=== PATIENT | male | born 1965 | race Caucasian/White ===

== ENCOUNTER 2018-10-23 10:30 | Outpatient (CLI) | payer OTHER ==
--- NOTE | 2018-10-23 14:00 | MRI ---
MRI LEFT SHOULDER: DATE: 10/23/2018. PROVIDED CLINICAL HISTORY: Left shoulder pain. FINDINGS: There is an abnormal appearance to the supraspinatus tendon. There is high-grade partial thickness u ndersurface tearing with retraction of the undersurface fibers to about the level of the acromion. I n addition, there are multifocal areas of partial thickness bursal surface tearing that communicate w ith the undersurface defect. There is resultant conspicuous subacromial subdeltoid bursal fluid. Th e components of the rotator cuff appear otherwise intact. The long head biceps tendon appears intact and normally located. The glenoid labrum and glenohumeral articular cartilage are suboptimally evaluated in the absence of joint distention but appear grossly normal. The amount of fluid within the glenohumeral joint appear s physiologic. There is subcortical cyst-like change present within the greater tuberosity. There is acromioclavicu lar joint osteoarthrosis and lateral downsloping of the acromion, the latter of which narrows the sub acromial space. Rotator cuff muscular volume appears preserved. IMPRESSION: 1. Retracted high-grade partial thickness undersurface tear involving the supraspinatus tendon with small foci of bursal surface tearing that communicate with this defect. There is no retraction of bu rsal surface fibers. There is resultant conspicuous subacromial subdeltoid bursal fluid. 2. Lateral downsloping of the acromion, which narrows the subacromial space. POS: OFF
== END 2018-10-23 10:31 | disposition home or self-care (01) ==
LOC: BICMRI 10:30
PROVIDERS: ATTEND Family Medicine
DX: M25.512 Pain in left shoulder (principal); M75.102 Unspecified rotator cuff tear or rupture of left shoulder, not specified as traumatic

== ENCOUNTER 2021-04-24 23:06 | Observation (INO) | payer OTHER ==
[2021-04-25] MEDS ORDERED: Aspirin Chewable 81 MG TAB ONE (01:11)
[2021-04-25] MEDS ORDERED: Aspirin 325 MG TAB ONE (01:33)
[2021-04-25] MEDS ORDERED: Ondansetron ODT 4 MG TAB PO PRN (02:11)
[2021-04-25] MEDS ORDERED: Acetaminophen 325 MG TAB PO PRN (02:11)
[2021-04-25] MEDS ORDERED: hydrALAZINE 20 MG/ML VIAL SLOW IVP PRN (02:11)
[2021-04-25] MEDS ORDERED: Ondansetron PF 4 MG/2 ML Vial IVP PRN (02:11)
[2021-04-25 03:43] VITALS: BMI 18.8
[2021-04-25 04:33] LABS: #Basophils 0.1 thou/uL (0.0-0.2); #Eosinphils 0.2 thou/uL (0.0-0.7); #Lymphocytes 3.4 thou/uL (1.20-3.40); #Monocytes 0.6 thou/uL (0.11-0.59); #Neutrophils 3.8 thou/uL (1.40-6.50); %Eosinophils 2.1 % (0.0-10.0); %Monocytes 7.6 % (0.0-10.0); %Neutrophils 47.4 % (42.0-75.0); Hemoglobin 12.7 g/dL (14.0-18.0); Mean Corpuscular Hemoglobin 30.8 pg (27.0-31.0); Mean Corpuscular Volume 90.5 fL (78.0-98.0); Mean Platelet Volume 9.5 fL (7.4-10.4); Platelet Count 141 thou/uL (130-400); RBC Distribution Width 12.9 % (11.5-14.5); Red Blood Cell (RBC) Count 4.14 mill/uL (4.70-6.10); White Blood Cell (WBC) Count 8.1 thou/uL (4.8-10.8)
[2021-04-25 04:57] LABS: Anion Gap 11 mmol/L (10-20); BUN (Urea Nitrogen) 22 mg/dL (8.4-25.7); Calc. Creatinine Clearance 51 mL/min (70-130); Calcium 9.1 mg/dL (7.8-10.44); Carbon Dioxide 26 mmol/L (22-29); Cardiac Risk 4.4 (Less than 4.5); Chloride 106 mmol/L (98-107); Cholesterol 119 mg/dl (< 200 Desired); Glucose 78 mg/dL (70-105); HDL Cholesterol 27 mg/dL (>60 Neg Risk); LDL Cholesterol, Calculated 77 mg/dL; Potassium 4.4 mmol/L (3.5-5.1); Sodium 139 mmol/L (136-145); Triglycerides 74 mg/dL (Less than 150)
[2021-04-25] MEDS: Enoxaparin Sodium 40 MG/0.4 ML SYRINGE SC SCH (11:00)
[2021-04-25] MEDS: Aspirin 81 mg Enteric Coated Tablet PO SCH (11:00)
[2021-04-25 19:40] LABS: #Basophils 0.1 thou/uL (0.0-0.2); #Eosinphils 0.1 thou/uL (0.0-0.7); #Lymphocytes 2.5 thou/uL (1.20-3.40); #Monocytes 0.5 thou/uL (0.11-0.59); #Neutrophils 4.3 thou/uL (1.40-6.50); %Basophils 0.7 % (0.0-1.0); %Eosinophils 1.8 % (0.0-10.0); %Lymphocytes 33.2 % (21.0-51.0); %Monocytes 6.3 % (0.0-10.0); %Neutrophils 57.9 % (42.0-75.0); Hemoglobin 12.5 g/dL (14.0-18.0); Mean Corpuscular HGB CONC 33.6 g/dL (32.0-36.0); Mean Corpuscular Hemoglobin 30.4 pg (27.0-31.0); Mean Corpuscular Volume 90.6 fL (78.0-98.0); Mean Platelet Volume 9.4 fL (7.4-10.4); Platelet Count 147 thou/uL (130-400); RBC Distribution Width 12.9 % (11.5-14.5); Red Blood Cell (RBC) Count 4.12 mill/uL (4.70-6.10); White Blood Cell (WBC) Count 7.4 thou/uL (4.8-10.8)
[2021-04-25 20:00] LABS: Anion Gap 13 mmol/L (10-20); BUN (Urea Nitrogen) 22 mg/dL (8.4-25.7); Calc. Creatinine Clearance 51 mL/min (70-130); Calcium 8.9 mg/dL (7.8-10.44); Carbon Dioxide 26 mmol/L (22-29); Chloride 105 mmol/L (98-107); Glucose 112 mg/dL (70-105); Potassium 4.2 mmol/L (3.5-5.1); Sodium 140 mmol/L (136-145)
[2021-04-25] MEDS ORDERED: Simvastatin 5 MG TAB PO SCH (21:00)
[2021-04-25] MEDS: HYDROcodone/Acetaminophen 10/325 mg Tablet PO SCH (21:10)
[2021-04-26] MEDS: Aspirin 81 mg Enteric Coated Tablet PO SCH (08:33)
[2021-04-26] MEDS: Enoxaparin Sodium 40 MG/0.4 ML SYRINGE SC SCH (08:33)
[2021-04-26] MEDS: HYDROcodone/Acetaminophen 10/325 mg Tablet PO SCH (08:34)
[2021-04-26 11:53] VITALS: BP 102/59; TEMP 97.8
[2021-04-26] MEDS ORDERED: Pregabalin 75 MG CAP PO SCH (21:00)
== END 2021-04-26 13:38 | disposition home or self-care (01) ==
LOC: ERS 23:06 → 2SW 04-25 00:59
PROVIDERS: ADMIT Student in an Organized Health Care Education/Training Program; ATTEND Internal Medicine
DX: R42 Dizziness and giddiness (principal); R00.1 Bradycardia, unspecified; D64.9 Anemia, unspecified; J32.9 Chronic sinusitis, unspecified; J39.2 Other diseases of pharynx; F17.210 Nicotine dependence, cigarettes, uncomplicated; E78.5 Hyperlipidemia, unspecified; E78.00 Pure hypercholesterolemia, unspecified; M19.90 Unspecified osteoarthritis, unspecified site; G89.29 Other chronic pain; M54.2 Cervicalgia; M25.519 Pain in unspecified shoulder; I95.1 Orthostatic hypotension; R25.2 Cramp and spasm; I08.3 Combined rheumatic disorders of mitral, aortic and tricuspid valves; Z79.899 Other long term (current) drug therapy; Z88.5 Allergy status to narcotic agent; Z88.8 Allergy status to other drugs, medicaments and biological substances
CPT/HCPCS: 36415; 70450; 70551; 80048; 80061; 85025; 93005; 93306; 93880; 96372; G0378; J1650

== ENCOUNTER 2022-10-02 03:25 | Observation (INO) | payer OTHER ==
[2022-10-02 03:43] VITALS: BMI 19.1
[2022-10-02] MEDS ORDERED: FENTANYL 50 MCG/ML 1 ML VIAL SLOW IVP PRN (04:13)
[2022-10-02] MEDS ORDERED: Ketorolac Tromethamine 30 MG/ML VIAL IVP PRN (04:13)
[2022-10-02] MEDS ORDERED: Lactated Ringer's 1,000 ML IV SCH (04:15)
[2022-10-02 05:30] LABS: SARS-CoV-2 NAA Rapid Test Not Detected (NotDetected)
[2022-10-02] MEDS ORDERED: Piperacillin/Tazobactam 3.375 GM in Sodium Chloride 0.9% 100 ML IVPB SCH (06:00)
[2022-10-02 08:35] LABS: #Basophils 0.1 thou/uL (0.0-0.2); #Lymphocytes 2.3 thou/uL (1.20-3.40); #Neutrophils 10.6 thou/uL (1.40-6.50); %Basophils 0.4 % (0.0-1.0); %Eosinophils 0.3 % (0.0-10.0); %Lymphocytes 16.1 % (21.0-51.0); %Monocytes 7.3 % (0.0-10.0); Hemoglobin 11.8 g/dL (14.0-18.0); Mean Corpuscular HGB CONC 31.5 g/dL (32.0-36.0); Mean Corpuscular Hemoglobin 29.4 pg (27.0-31.0); Mean Corpuscular Volume 93.4 fl (78.0-98.0); Mean Platelet Volume 10.5 fL (7.4-10.4); Platelet Count 105 10x3/uL (130-400); RBC Distribution Width 13.4 % (11.5-14.5); Red Blood Cell (RBC) Count 4.03 mill/uL (4.70-6.10)
[2022-10-02] MEDS ORDERED: traMADol HCl 50 MG TAB PO PRN ×2 (08:46)
[2022-10-02] MEDS ORDERED: Ondansetron PF 4 MG/2 ML Vial IVP PRN (08:46)
[2022-10-02] MEDS ORDERED: Ondansetron ODT 4 MG TAB PO PRN (08:46)
[2022-10-02 08:51] LABS: Anion Gap 13 mmol/L (10-20); BUN (Urea Nitrogen) 17 mg/dL (8.4-25.7); Calc. Creatinine Clearance 50 mL/min (70-130); Calcium 8.9 mg/dL (7.8-10.44); Carbon Dioxide 25 mmol/L (22-29); Chloride 104 mmol/L (98-107); Estimated GFR 70; Glucose 96 mg/dL (70-105); Potassium 4.5 mmol/L (3.5-5.1); Sodium 137 mmol/L (136-145)
[2022-10-02] MEDS ORDERED: Sodium Chloride 0.45% 1,000 ML IV SCH (09:00)
[2022-10-02] MEDS ORDERED: Sodium Chloride 0.9% 1,000 ML IV SCH (09:00)
[2022-10-02] MEDS ORDERED: Bupivacaine HCl 0.5%/Epinephrine 1:200,000/PF 30 ml Vial ONE (12:07)
[2022-10-02] MEDS ORDERED: Phenylephrine 10 MG/ML VIAL ONE (12:21)
[2022-10-02] MEDS ORDERED: fentaNYL PF 100 MCG/2 ML SYRINGE ONE (12:21)
[2022-10-02] MEDS ORDERED: PROPOFOL 200 MG/20 ML VIAL ONE (12:35)
[2022-10-02] MEDS ORDERED: Succinylcholine Chloride 200 MG/10 ML VIAL ONE (12:35)
[2022-10-02] MEDS ORDERED: Rocuronium Bromide 10 MG/ML (10ML VIAL) ONE (12:35)
[2022-10-02] MEDS ORDERED: Ondansetron PF 4 MG/2 ML Vial ONE (12:35)
[2022-10-02] MEDS ORDERED: ePHEDrine 50 MG/ML VIAL ONE (12:35)
[2022-10-02] MEDS ORDERED: NEOSTIGMINE 3 MG/3 ML SYR 3 MG/3 ML SYRINGE ONE (12:35)
[2022-10-02] MEDS ORDERED: PHENYLEPHRINE-NS 100 MCG/ML 10 ML SYRINGE ONE (12:35)
[2022-10-02] MEDS ORDERED: Glycopyrrolate 0.2 MG/ML 5 ML SYRINGE ONE (12:35)
[2022-10-02] MEDS ORDERED: Meperidine HCl/PF 25 MG/ML VIAL SLOW IVP PRN (13:03)
[2022-10-02] MEDS ORDERED: HYDROmorphone 2 MG/ML VIAL SLOW IVP PRN (13:03)
[2022-10-02] MEDS ORDERED: Promethazine HCl 25 MG/ML VIAL IVPB PRN (13:03)
[2022-10-02] MEDS ORDERED: SUGAMMADEX SODIUM 200 MG/2 ML VIAL ONE (13:21)
[2022-10-02] MEDS ORDERED: Meperidine HCl/PF 25 MG/ML VIAL ONE (13:27)
[2022-10-02] MEDS ORDERED: Ibuprofen 600 MG TAB PO PRN (13:48)
[2022-10-02] MEDS ORDERED: Acetaminophen 500 MG TAB PO PRN (13:48)
[2022-10-02 16:29] VITALS: BP 82/56; TEMP 97.9
[2022-10-02] MEDS ORDERED: Enoxaparin Sodium 40 MG/0.4 ML SYRINGE SC SCH (21:00)
[2022-10-02] MEDS ORDERED: Enoxaparin Sodium 30 MG/0.3 ML SYRINGE SC SCH (21:00)
[2022-10-05] MEDS ORDERED: FLU VACC QS2022-23(6MOS UP)/PF 60 MCG/0.5 ML SYRINGE IM ONE (09:00)
== END 2022-10-02 16:34 | disposition home or self-care (01) ==
LOC: T4-A 03:25 → INTOOBSV 08:46 → OBSVTOIN 08:46
PROVIDERS: ADMIT Specialist; ATTEND Specialist
PROC: 0DTJ4ZZ Resection of Appendix, Percutaneous Endoscopic Approach (ICD-10-PCS; principal; 2022-10-02)
DX: K35.80 Unspecified acute appendicitis (principal); E86.0 Dehydration; J44.9 Chronic obstructive pulmonary disease, unspecified; I08.3 Combined rheumatic disorders of mitral, aortic and tricuspid valves; F17.200 Nicotine dependence, unspecified, uncomplicated; Z79.899 Other long term (current) drug therapy; Z88.5 Allergy status to narcotic agent; Z88.8 Allergy status to other drugs, medicaments and biological substances; Z20.822 Contact with and (suspected) exposure to COVID-19
CPT/HCPCS: 36415; 71045; 80048; 85025; 88304; 93005; 93010; A4649; G0378; J0330; J1885; J2175; J2370; J2405; J2543; J2704; J3490; J7050; J7120; U0002